=== PATIENT | female | born 1945 | race Two or more races ===

== ENCOUNTER 2021-11-28 10:29 | Emergency (ER) | payer OTHER ==
[~2021-11-28] VITALS: Ht 152.4 cm; Wt 64.4 kg
[2021-11-28] MEDS ORDERED: LIPITOR40 MG PO (10:35)
== END 2021-11-28 11:58 | disposition home or self-care (01) ==
LOC: ER 10:29
DX: M54.41 Lumbago with sciatica, right side (principal); M54.42 Lumbago with sciatica, left side